=== PATIENT | male | born 1960 | race Caucasian/White ===

== ENCOUNTER → 2017-04-18 | Outpatient (CLI) | payer BC, OTHER ==
--- NOTE | 2017-04-20 09:43 | REP ---
Chest X-ray: Two views. History: Obstructive sleep apnea. Comparison chest x-ray: September 02, 2015. Findings: The lungs are symmetrically aerated. Interstitial markings remain somewhat prominent diffusely. Pleural angles are sharp. Heart is not enlarged. Pulmonary vasculature is not felt to be increased. There are degenerative changes in the thoracic spine. Impression: Chronic interstitial changes again seen status quo. No acute disease. Signed by Fran Randolph MD 04/20/2017 11:02 A
== END ==
LOC: M SMT 14:47
PROVIDERS: ATTEND Internal Medicine Pulmonary Disease
DX: G47.33 Obstructive sleep apnea (adult) (pediatric) (principal); J98.4 Other disorders of lung

== ENCOUNTER → 2018-11-20 | Outpatient (CLI) | payer BC, OTHER ==
[2018-11-20 13:51] LABS: BLOOD UREA NITROGEN 11 MG/DL (7-18); CALCIUM LEVEL 9.3 MG/DL (8.5-10.1); CARBON DIOXIDE LEVEL 31 MEQ/L (21-32); CHLORIDE LEVEL 105 MEQ/L (98-107); CREATININE FOR GFR 0.96 MG/DL (0.70-1.30); GLOMERULAR FILTRATION RATE > 60.0 (>56); GLUCOSE, FASTING 105 MG/DL (70-100); SODIUM LEVEL 140 MEQ/L (136-145)
[2018-11-20 14:19] LABS: HEMOGLOBIN A1c 6.5 %
== END ==
LOC: M SMT 08:58
PROVIDERS: ATTEND Family Medicine
DX: R73.03 Prediabetes (principal)

== ENCOUNTER → 2019-03-23 | Outpatient (CLI) | payer BC, OTHER | LOC: M SMT 13:54 | PROVIDERS: ATTEND Nurse Practitioner Family | DX: Z12.5 Encounter for screening for malignant neoplasm of prostate (principal) | CPT/HCPCS: 36415; G0103 ==

== ENCOUNTER → 2019-03-23 | Outpatient (REF) | payer OTHER ==
[2019-03-23 18:47] LABS: APPEARANCE, URINE CLEAR (CLEAR); BACTERIA, URINE AUTO NEGATIVE (NEGATIVE); BILIRUBIN, URINE AUTO NEGATIVE (NEGATIVE); BLOOD, URINE BLOOD NEGATIVE (NEGATIVE); CALCIUM OXALATE CRYSTALS SMALL; COLOR, URINE YELLOW (YELLOW); GLUCOSE, URINE (UA) AUTO NEGATIVE (NEGATIVE); KETONE, URINE AUTO NEGATIVE (NEGATIVE); LEUKOCYTE ESTERASE, URINE AUTO NEGATIVE (NEGATIVE); MUCUS, URINE SMALL (NEGATIVE); NITRITE, URINE AUTO NEGATIVE (NEGATIVE); PROTEIN, URINE AUTO NEGATIVE (NEGATIVE); RBC, URINE AUTO 0 /HPF (0-3); SPECIFIC GRAVITY URINE AUTO 1.021 (1.002-1.035); SQUAMOUS EPITHELIAL CELL UR AU 0 /HPF (0-6); UROBILINOGEN, URINE AUTO 0.2 mg/dL (0.0-2.0); WBC, URINE AUTO 0 /HPF (0-3)
== END ==
LOC: M SMT 17:11
PROVIDERS: ATTEND Nurse Practitioner Family
DX: N53.12 Painful ejaculation (principal)

== ENCOUNTER → 2020-01-30 | Outpatient (CLI) | payer BC, OTHER | LOC: M LABSMTC 11:51 | PROVIDERS: ATTEND Family Medicine | DX: Z11.59 Encounter for screening for other viral diseases (principal); Z20.828 Contact with and (suspected) exposure to other viral communicable diseases ==

== ENCOUNTER → 2020-08-26 | Outpatient (CLI) | payer BC, OTHER ==
--- NOTE | 2020-08-27 03:09 | REPPI ---
INDICATION: D86.0 SARCOIDOSIS OF LUNG COMPARISON: 08/29/2019, 04/18/2017 TECHNIQUE: PA and lateral. FINDINGS: The mediastinum and cardiac silhouette are normal. No significant adenopathy noted. The lung villalpando demonstrate chronic interstitial changes without acute consolidation, effusion, or pneumothorax. The skeletal structures are intact and normal. IMPRESSION: Chronic stable changes. No acute process appreciated. No obvious adenopathy. <Electronically signed by Errol Peralta > 08/27/20 [id number]
== END ==
LOC: M PLAIMG 15:11
PROVIDERS: ATTEND Internal Medicine Pulmonary Disease
DX: D86.0 Sarcoidosis of lung (principal)

== ENCOUNTER → 2023-08-22 | Outpatient (CLI) | payer BC, OTHER | LOC: M PLAIMG 09:43 | PROVIDERS: ATTEND Internal Medicine Pulmonary Disease | DX: D86.0 Sarcoidosis of lung (principal) ==

== ENCOUNTER → 2024-08-30 | Outpatient (CLI) | payer BC | LOC: M PLAIMG 08:46 | PROVIDERS: ATTEND Internal Medicine Gastroenterology | DX: D86.0 Sarcoidosis of lung (principal) ==

== ENCOUNTER → 2024-10-09 | Outpatient (CLI) | payer BC | LOC: M PLAIMG 11:10 | PROVIDERS: ATTEND Nurse Practitioner Adult Health | DX: S46.811A Strain of other muscles, fascia and tendons at shoulder and upper arm level, right arm, initial encounter (principal); W18.30XA Fall on same level, unspecified, initial encounter; Y92.009 Unspecified place in unspecified non-institutional (private) residence as the place of occurrence of the external cause ==

== ENCOUNTER → 2024-11-27 | Outpatient (CLI) | payer BC ==
[2024-11-27 10:45] LABS: BASO # 0.1 10^3/uL (0.0-0.2); BASO % 1.1 % (0.0-1.0); EOS # 0.2 10^3/uL (0.0-0.5); EOS % 2.2 % (0.0-3.0); HEMATOCRIT 47.7 % (42.0-52.0); HEMOGLOBIN 15.9 g/dl (13.5-17.5); LYMPH # 1.9 10^3/uL (1.5-5.0); LYMPH % 23.1 % (24.0-44.0); MEAN CORPUSCULAR HEMOGLOBIN 29.7 pg (27.0-33.0); MEAN CORPUSCULAR HGB CONC 33.3 g/dl (32.0-36.5); MEAN CORPUSCULAR VOLUME 89.2 fl (80.0-96.0); MONO # 0.6 10^3/uL (0.0-0.8); MONO % 7.5 % (2.0-8.0); NEUTROPHILS # 5.4 10^3/uL (1.5-8.5); NEUTROPHILS % 65.6 % (36.0-66.0); PLATELET COUNT, AUTOMATED 241 10^3/uL (150-450); RED BLOOD COUNT 5.35 10^6/uL (4.30-6.10); WHITE BLOOD COUNT 8.2 10^3/uL (4.0-10.0)
[2024-11-27 10:52] LABS: ALBUMIN 4.2 G/DL (3.2-5.2); ALKALINE PHOSPHATASE 121 U/L (40-129); ALT/SGPT 107 U/L (7.0-40); AST/SGOT 75 U/L (<34); BILIRUBIN,TOTAL 0.5 MG/DL (0.3-1.2); BLOOD UREA NITROGEN 10 MG/DL (9-23); CALCIUM LEVEL 9.5 MG/DL (8.3-10.6); CARBON DIOXIDE LEVEL 26 MMOL/L (20-31); CHLORIDE LEVEL 102 MMOL/L (98-107); CREATININE FOR GFR 0.71 MG/DL (0.70-1.30); GLOMERULAR FILTRATION RATE > 60.0 (>49); GLUCOSE, FASTING 219 MG/DL (74-106); POTASSIUM SERUM 4.2 MMOL/L (3.5-5.1); PSA SCREENING 1.94 NG/ML (< 4.00); SODIUM LEVEL 138 MMOL/L (136-145); TOTAL PROTEIN 7.5 G/DL (5.7-8.2)
[2024-11-27 11:06] LABS: HEMOGLOBIN A1c 9.9 % (4.0-6.0)
[2024-11-27 11:21] LABS: TOTAL 25(OH) VITAMIN D 33.8 NG/ML (20.0-100.0)
== END ==
LOC: M PLALAB 08:03
PROVIDERS: ATTEND Nurse Practitioner Adult Health
DX: E11.9 Type 2 diabetes mellitus without complications (principal); Z12.5 Encounter for screening for malignant neoplasm of prostate; E55.9 Vitamin D deficiency, unspecified

== ENCOUNTER → 2025-06-14 | Outpatient (CLI) | payer BC | LOC: M RAD 10:40 | PROVIDERS: ATTEND Nurse Practitioner Adult Health | DX: K40.90 Unilateral inguinal hernia, without obstruction or gangrene, not specified as recurrent (principal); I86.1 Scrotal varices ==